=== PATIENT | male | born 1980 | race Caucasian/White ===

== ENCOUNTER 2016-11-27 17:30 | Emergency (ER) | payer MEDICAID ==
[~2016-11-27] VITALS: Ht 177.8 cm; Wt 95.3 kg
[2016-11-27 18:08] VITALS: BP_SYST 144
== END 2016-11-27 21:20 | disposition home or self-care (01) ==
LOC: SED 17:30
DX: M25.862 Other specified joint disorders, left knee (principal)
CPT/HCPCS: 99281

== ENCOUNTER 2017-07-29 21:04 | Emergency (ER) | payer MEDICAID ==
[~2017-07-29] VITALS: Ht 177.8 cm; Wt 99.8 kg
[2017-07-29 21:05] VITALS: BP_SYST 143
--- NOTE | 2017-07-29 22:20 | NUR ---
Patient to ER bed H2 to gown for evaluation. Side rails up. Report given to Halley AVILA.
--- NOTE | 2017-07-29 22:38 | NUR ---
No Pt AAOx4 ambulated into ED c/o 11/22 left thumb pain x3 days. Pain exacerbated upon palpation. +CMS, + swelling. No active bleeding to sight. No other injuries/complaints per pt/noted.
--- NOTE | 2017-07-29 22:40 | NUR ---
ABRAHAM Jacinto at bedside examining patient.
[2017-07-29] MEDS ORDERED: IBUPROFEN 800 MG TABLET PO ONE (22:45)
--- NOTE | 2017-07-29 22:49 | NUR ---
Patient given written and verbal discharge instructions and verbalizes understanding. ER MD Jacinto discussed with patient the results and treatment provided. Patient in stable condition. ID arm band removed. No Rx given. Patient educated on pain management and to follow up with PMD. Pain Scale 0. Opportunity for questions provided and answered. Medication side effect fact sheet provided.
[2017-07-29 22:59] VITALS: BP_SYST 142
== END 2017-07-29 22:49 | disposition home or self-care (01) ==
LOC: SED 21:04
DX: L03.012 Cellulitis of left finger (principal); R03.0 Elevated blood-pressure reading, without diagnosis of hypertension
CPT/HCPCS: 73140-TC; 99284

== ENCOUNTER 2018-03-02 14:32 | Emergency (ER) | payer MEDICAID ==
[~2018-03-02] VITALS: Ht 177.8 cm; Wt 99.8 kg
[2018-03-02 14:40] VITALS: BP_SYST 112
--- NOTE | 2018-03-02 14:43 | NUR ---
Patient triaged and placed in waiting room. VSS and patient appears in no acute distress at this time. Accompanied by SELF, awaiting available bed, and MD notified of need for MSE.
--- NOTE | 2018-03-02 14:51 | NUR ---
Pt placed in bed 5
--- NOTE | 2018-03-02 15:00 | NUR ---
Pt presents to ER for laceration sustained on L index finger current pain level 6/10 on pain scale. Pt reports that he was using utility knife when he accidentally cut finger. Mild bleeding present on laceration. Pt AOX4, ambulatory, no signs of acute distress, pt denies any other complaints.
--- NOTE | 2018-03-02 15:12 | NUR ---
ER at bedside examining patient.
[2018-03-02] MEDS ORDERED: LIDOCAINE 2%, 20 ML MDV INJ ONE (15:30)
[2018-03-02] MEDS ORDERED: DIPH-TET-PERTUS Vaccine 0.5 ML VIAL (ADACEL) I.M. ONE (15:30)
--- NOTE | 2018-03-02 15:50 | NUR ---
Dr. Leon at bedside applying sutures.
[2018-03-02] MEDS ORDERED: BACITRACIN 1 GM OINT TP ONE ×2 (16:15→16:17)
--- NOTE | 2018-03-02 16:30 | NUR ---
Pt medicated as ordered by ER Dr. Leon. Pt tolerated well.
[2018-03-02 17:00] VITALS: BP_SYST 112
--- NOTE | 2018-03-02 17:00 | NUR ---
Patient given written and verbal discharge instructions and verbalizes understanding. ER MD discussed with patient the results and treatment provided. Patient in stable condition. ID arm band removed. Rx of Keflex, [place], Bacitracin given. Patient educated on pain management and to follow up with PMD. Pain Scale 0/10. Opportunity for questions provided and answered. Medication side effect fact sheet provided.
== END 2018-03-02 17:00 | disposition home or self-care (01) ==
LOC: SED 14:32
DX: S61.211A Laceration without foreign body of left index finger without damage to nail, initial encounter (principal); W26.0XXA Contact with knife, initial encounter; Y93.89 Activity, other specified; Y92.89 Other specified places as the place of occurrence of the external cause; Y99.8 Other external cause status
CPT/HCPCS: 12002; 90471; 90715; 99283; J2001

== ENCOUNTER 2018-03-12 13:32 | Emergency (ER) | payer MEDICAID ==
[~2018-03-12] VITALS: Ht 177.8 cm; Wt 99.8 kg
[2018-03-12 13:42] VITALS: BP_SYST 122
[2018-03-12 15:06] VITALS: BP_SYST 131
== END 2018-03-12 15:05 | disposition home or self-care (01) ==
LOC: SED 13:32
DX: S61.411A Laceration without foreign body of right hand, initial encounter (principal); W26.8XXA Contact with other sharp object(s), not elsewhere classified, initial encounter; Y93.89 Activity, other specified; Y92.89 Other specified places as the place of occurrence of the external cause; Y99.8 Other external cause status
CPT/HCPCS: 99283

== ENCOUNTER 2018-03-20 03:46 | Emergency (ER) | payer SELFPAY ==
[~2018-03-20] VITALS: Ht 177.8 cm; Wt 99.8 kg
[2018-03-20 03:58] VITALS: BP_SYST 144
[2018-03-20 04:24] VITALS: BP_SYST 138
== END 2018-03-20 04:24 ==
LOC: SED 03:46
DX: S61.411A Laceration without foreign body of right hand, initial encounter (principal); X58.XXXA Exposure to other specified factors, initial encounter; Y93.89 Activity, other specified; Y92.89 Other specified places as the place of occurrence of the external cause; Y99.8 Other external cause status
CPT/HCPCS: 99283

== ENCOUNTER 2018-11-04 17:03 | Emergency (ER) | payer MEDICAID ==
[~2018-11-04] VITALS: Ht 177.8 cm; Wt 95.3 kg
[2018-11-04 17:08] VITALS: BP_SYST 139
[2018-11-04] MEDS ORDERED: IBUPROFEN 800 MG TABLET PO ONE (17:15)
[2018-11-04 18:23] VITALS: BP_SYST 128
== END 2018-11-04 18:25 | disposition home or self-care (01) ==
LOC: SED 17:03
DX: S46.911A Strain of unspecified muscle, fascia and tendon at shoulder and upper arm level, right arm, initial encounter (principal); X58.XXXA Exposure to other specified factors, initial encounter; Y93.89 Activity, other specified; Y92.89 Other specified places as the place of occurrence of the external cause; Y99.8 Other external cause status
CPT/HCPCS: 73030; 99283

== ENCOUNTER 2018-11-16 17:17 | Emergency (ER) | payer MEDICAID ==
[~2018-11-16] VITALS: Ht 177.8 cm; Wt 95.3 kg
[2018-11-16 17:33] VITALS: BP_SYST 142
[2018-11-16 18:50] VITALS: BP_SYST 132
== END 2018-11-16 18:50 | disposition home or self-care (01) ==
LOC: SED 17:17
DX: S46.911D Strain of unspecified muscle, fascia and tendon at shoulder and upper arm level, right arm, subsequent encounter (principal); R03.0 Elevated blood-pressure reading, without diagnosis of hypertension; X50.0XXD Overexertion from strenuous movement or load, subsequent encounter
CPT/HCPCS: 73030; 99283

== ENCOUNTER 2019-03-08 18:53 | Emergency (ER) | payer MEDICAID ==
[~2019-03-08] VITALS: Ht 180.3 cm; Wt 95.3 kg
[2019-03-08 18:53] VITALS: BP_SYST 136
--- NOTE | 2019-03-08 18:53 | NUR ---
BROUGHT IN BY PRINCE VILLASEÑOR AND PLACED IN HALLWAY, TRIAGED AND REPORT GIVEN TO [employer]URSES
--- NOTE | 2019-03-08 19:20 | NUR ---
Pt KATHERINE PUENTES for medical clearance. Pt C/O pain, swelling and redness to the RT 4th digit. Reports that he may have been bitten by a spider. Pt has full ROM to the RT hand. Denies any discharge, SOB, or any other symptoms at this time. Will continue to monitor.
--- NOTE | 2019-03-08 20:00 | NUR ---
ER Dr. Freedman at bedside examining patient.
[2019-03-08] MEDS ORDERED: DIPHENHYDRAMINE HCL 25 MG CAPSULE PO ONE (20:15)
[2019-03-08] MEDS ORDERED: PREDNISONE 20 MG TABLET PO ONE (20:15)
[2019-03-08] MEDS ORDERED: CEPHALEXIN 500 MG CAPSULE PO ONE (20:15)
[2019-03-08 20:32] VITALS: BP_SYST 136
--- NOTE | 2019-03-08 20:33 | NUR ---
Patient given written and verbal discharge instructions and verbalizes understanding. ER MD discussed with patient the results and treatment provided. Patient in stable condition. ID arm band removed. Rx of Keflex, Prednisone and Benadryl given. Patient educated on pain management and to follow up with PMD. Pain Scale 0. Opportunity for questions provided and answered. Medication side effect fact sheet provided.
== END 2019-03-08 20:03 | disposition home or self-care (01) ==
LOC: SED 18:53
DX: Z02.89 Encounter for other administrative examinations (principal); L03.012 Cellulitis of left finger; F15.90 Other stimulant use, unspecified, uncomplicated; F17.210 Nicotine dependence, cigarettes, uncomplicated
CPT/HCPCS: 99284; J7512; Q0163

== ENCOUNTER 2019-05-31 04:38 | Emergency (ER) | payer MEDICAID ==
[~2019-05-31] VITALS: Ht 177.8 cm; Wt 95.3 kg
[2019-05-31 04:49] VITALS: BP_SYST 141
--- NOTE | 2019-05-31 04:49 | NUR ---
Patient to ER bed 6 to gown for evaluation. Side rails up. Report given to MARGARITA Longo.
--- NOTE | 2019-05-31 05:01 | NUR ---
Pt presents to ER with c/o right hand pain. Pt states he "pushed a board with nails on it" and cut his hand. Pt states right palm pain. Pt states pain is 5/10. Upon assessment, 3 punctures noted to R hand and abrasion noted to L wrist. No bleeding noted. Pt states tetanus up to date. Will continue to monitor.
--- NOTE | 2019-05-31 05:14 | NUR ---
ER Dr. Horta at bedside examining patient.
[2019-05-31] MEDS ORDERED: KETOROLAC TROMETHAMINE 60 MG/2 ML VIAL IM ONE (05:30)
[2019-05-31 05:45] VITALS: BP_SYST 140
--- NOTE | 2019-05-31 05:45 | NUR ---
Patient given written and verbal discharge instructions and verbalizes understanding. ER MD Horta discussed with patient the results and treatment provided. Patient in stable condition. ID arm band removed. IV catheter removed intact and dressing applied, no active bleeding. Rx of motrin given. Patient educated on pain management and to follow up with PMD. Pain Scale 2/10. Opportunity for questions provided and answered. Medication side effect fact sheet provided.
== END 2019-05-31 05:45 | disposition home or self-care (01) ==
LOC: SED 04:38
DX: S61.431A Puncture wound without foreign body of right hand, initial encounter (principal); S61.432A Puncture wound without foreign body of left hand, initial encounter; W45.8XXA Other foreign body or object entering through skin, initial encounter; Y93.89 Activity, other specified; Y92.89 Other specified places as the place of occurrence of the external cause; Y99.8 Other external cause status
CPT/HCPCS: 99282; J1885

== ENCOUNTER 2019-06-03 12:35 | Emergency (ER) | payer MEDICAID ==
[~2019-06-03] VITALS: Ht 177.8 cm; Wt 95.3 kg
--- NOTE | 2019-06-03 13:25 | NUR ---
Patient to ER bed H1 to gown for evaluation. Side rails up.
--- NOTE | 2019-06-03 13:26 | NUR ---
ABRAHAM MCNAIR at bedside examining patient.
--- NOTE | 2019-06-03 13:27 | NUR ---
PT C/O RASH ON HAND AFTER EXPOSURE TO HUMAN WASTE WHILE DOING ROAD SIDE CLEANUP.
[2019-06-03 13:41] VITALS: BP_SYST 123
[2019-06-03 14:00] VITALS: BP_SYST 123
--- NOTE | 2019-06-03 14:00 | NUR ---
Patient given written and verbal discharge instructions and verbalizes understanding. ER MD discussed with patient the results and treatment provided. Patient in stable condition. ID arm band removed. Rx of PREDNISONE,BACTRIM,KEFLEX,MUPIROCIN given. Patient educated on pain management and to follow up with PMD. Pain Scale 0. Opportunity for questions provided and answered. Medication side effect fact sheet provided.
== END 2019-06-03 14:00 | disposition home or self-care (01) ==
LOC: SED 12:35
DX: L50.9 Urticaria, unspecified (principal); L01.00 Impetigo, unspecified; R03.0 Elevated blood-pressure reading, without diagnosis of hypertension; F17.200 Nicotine dependence, unspecified, uncomplicated; Z71.6 Tobacco abuse counseling
CPT/HCPCS: 99283

== ENCOUNTER 2019-12-11 20:39 | Emergency (ER) | payer MEDICAID ==
[~2019-12-11] VITALS: Ht 177.8 cm; Wt 95.3 kg
[2019-12-11 21:14] VITALS: BP_SYST 141
[2019-12-11 21:50] VITALS: BP_SYST 141
== END 2019-12-11 21:50 | disposition home or self-care (01) ==
LOC: SED 20:39
DX: T78.49XA Other allergy, initial encounter (principal); I10 Essential (primary) hypertension; W57.XXXA Bitten or stung by nonvenomous insect and other nonvenomous arthropods, initial encounter
CPT/HCPCS: 99283

== ENCOUNTER 2020-01-23 05:27 | Emergency (ER) | payer SELFPAY ==
[~2020-01-23] VITALS: Ht 177.8 cm; Wt 95.3 kg
--- NOTE | 2020-01-23 05:44 | NUR ---
Patient to ER bed 7 to gown for evaluation. Side rails up.
[2020-01-23 05:45] VITALS: BP_SYST 130
--- NOTE | 2020-01-23 05:45 | NUR ---
ABRAHAM Armenta at bedside examining patient.
--- NOTE | 2020-01-23 05:48 | NUR ---
Pt presents to the ER for bug bite to the R FA x 2 days ago. Pt states bite has increased in swelling, pain and redness. Denies fever, fluid like d/c from bite, n/v/d. Pt reports taking benadryl at approx 2 am.
[2020-01-23 06:50] VITALS: BP_SYST 130
--- NOTE | 2020-01-23 06:50 | NUR ---
Patient given written and verbal discharge instructions and verbalizes understanding. ER MD discussed with patient the results and treatment provided. Patient in stable condition. ID arm band removed. Rx of Benadryl given. Patient educated on pain management and to follow up with PMD. Opportunity for questions provided and answered. Medication side effect fact sheet provided.
== END 2020-01-23 06:50 | disposition home or self-care (01) ==
LOC: SED 05:27
DX: S50.861A Insect bite (nonvenomous) of right forearm, initial encounter (principal); W57.XXXA Bitten or stung by nonvenomous insect and other nonvenomous arthropods, initial encounter; Y93.89 Activity, other specified; Y92.89 Other specified places as the place of occurrence of the external cause; Y99.8 Other external cause status
CPT/HCPCS: 99282

== ENCOUNTER 2020-01-30 20:47 | Emergency (ER) | payer SELFPAY ==
[~2020-01-30] VITALS: Ht 177.8 cm; Wt 95.3 kg
[2020-01-30 20:55] VITALS: BP_SYST 127
--- NOTE | 2020-01-30 21:00 | NUR ---
Patient to ER bed 3 to gown for evaluation. Side rails up. Report given to PAULETTE AVILA.
--- NOTE | 2020-01-30 21:05 | NUR ---
ER at bedside examining patient.
--- NOTE | 2020-01-30 21:10 | NUR ---
Patient presents to the ER c/o bump to L wrist w/ pain rating at 7/10. Pt belives it was bug bite. The bump has increased in size, denies fever, chills and cough. Pt reports hx of meth and nicotine use.
[2020-01-30 22:25] VITALS: BP_SYST 127
--- NOTE | 2020-01-30 22:25 | NUR ---
Patient given written and verbal discharge instructions and verbalizes understanding. ER MD discussed with patient the results and treatment provided. Patient in stable condition. ID arm band removed. Rx of ibuprofen and bactrim given. Patient educated on pain management and to follow up with PMD. Opportunity for questions provided and answered. Medication side effect fact sheet provided.
--- NOTE | 2020-01-30 22:41 | NUR ---
Note undone in EDM - 01/30/20 at 2251 by [email or web address] Patient presents to the ER c/o bump to L wrist w/ pain rating at 7/10. Pt belives it was bug bite. The bump has increased in size, denies fever, chills and cough. Pt reports hx of meth and nicotine use.
== END 2020-01-30 22:25 | disposition home or self-care (01) ==
LOC: SED 20:47
DX: L02.413 Cutaneous abscess of right upper limb (principal); F17.200 Nicotine dependence, unspecified, uncomplicated; F15.90 Other stimulant use, unspecified, uncomplicated
CPT/HCPCS: 87070-TC; 87075-TC; 99284

== ENCOUNTER 2020-08-20 21:20 | Emergency (ER) | payer SELFPAY ==
[~2020-08-20] VITALS: Ht 177.8 cm; Wt 95.3 kg
[2020-08-20 21:20] VITALS: BP_SYST 127
[2020-08-20 23:35] VITALS: BP_SYST 127
== END 2020-08-20 23:35 | disposition home or self-care (01) ==
LOC: SED 21:20
DX: M79.671 Pain in right foot (principal); M79.672 Pain in left foot
CPT/HCPCS: 99282

== ENCOUNTER 2021-07-04 14:20 | Emergency (ER) | payer MEDICAID ==
[~2021-07-04] VITALS: Ht 177.8 cm; Wt 97.5 kg
[2021-07-04 14:30] VITALS: BP_SYST 127
--- NOTE | 2021-07-04 14:30 | NUR ---
Pt triaged and placed in room [address] Hickman informed.
--- NOTE | 2021-07-04 14:40 | NUR ---
PT Jolene/ALVARADO FROM HOME complaint of some pain and swelling and erythema to the right arm X 3 day , he reported he may have been exposed to poison oak. He denies any fevers or chills. Denies any pain or swelling at injection site. denies shortness of breath.ed md seen pt gave order
[2021-07-04] MEDS ORDERED: CLINDAMYCIN HCL 150 MG CAPSULE PO ONE (14:45)
[2021-07-04] MEDS ORDERED: HYDC1% TP (14:48)
[2021-07-04] MEDS ORDERED: CLIN-142 PO (14:48)
[2021-07-04 16:05] VITALS: BP_SYST 127
--- NOTE | 2021-07-04 16:05 | NUR ---
Patient given written and verbal discharge instructions and verbalizes understanding. ER MD discussed with patient the results and treatment provided. Patient in stable condition. ID arm band removed. [facility]CI Rx of given. Patient educated on pain management and to follow up with PMD. Pain Scale . Opportunity for questions provided and answered. Medication side effect fact sheet provided.
== END 2021-07-04 16:05 | disposition home or self-care (01) ==
LOC: SED 14:20
DX: L03.113 Cellulitis of right upper limb (principal); Z79.899 Other long term (current) drug therapy
CPT/HCPCS: 99283

== ENCOUNTER 2022-05-18 23:54 | Emergency (ER) | payer MEDICAID ==
[~2022-05-18] VITALS: Ht 177.8 cm; Wt 95.3 kg
[~2022-05-18 23:54] MED LIST: CLIN-142 PO; HYDC1% TP
[2022-05-19 00:12] VITALS: BP_SYST 131
--- NOTE | 2022-05-19 00:16 | NUR ---
Patient triaged and placed in waiting room. VSS and patient appears in no acute distress at this time. Accompanied by self, awaiting available bed, and MD Morrissey notified of need for MSE.
--- NOTE | 2022-05-19 00:19 | NUR ---
Patient to ER bed 2 to gown for evaluation. Side rails up. Report given to MARGARITA Singh.
[2022-05-19] MEDS ORDERED: DIPHTH,PERTUSS(ACELL),TET VAC 0.5 ML VIAL (Tdap) I.M. ONE (01:00)
[2022-05-19 01:10] VITALS: BP_SYST 131
--- NOTE | 2022-05-19 01:10 | NUR ---
Patient given written and verbal discharge instructions and verbalizes understanding. ER MD discussed with patient the results and treatment provided. Patient in stable condition. ID arm band removed. Opportunity for questions provided and answered.
== END 2022-05-19 01:10 | disposition home or self-care (01) ==
LOC: SED 23:54
DX: S01.511A Laceration without foreign body of lip, initial encounter (principal); Z79.899 Other long term (current) drug therapy; Y04.0XXA Assault by unarmed brawl or fight, initial encounter; Y93.89 Activity, other specified; Y92.89 Other specified places as the place of occurrence of the external cause; Y99.8 Other external cause status
CPT/HCPCS: 90715; 99283

== ENCOUNTER 2023-03-03 09:09 | Emergency (ER) | payer MEDICAID ==
[~2023-03-03] VITALS: Ht 177.8 cm; Wt 84.8 kg
[2023-03-03 09:18] VITALS: BP_SYST 120; PULSE 98; RESP 20; TEMP 97.6; O2SAT 97
[2023-03-03] MEDS ORDERED: LIDOCAINE VISCOUS 2%, 15 ML UDC MM ONE (10:00)
[2023-03-03] MEDS ORDERED: DEXAMETHASONE SOD PHOSPHATE 10 MG/ML VIAL PO ONE (10:00)
[2023-03-03 10:44] LABS: INFLUENZA TYPE A Negative (NEGATIVE); INFLUENZA TYPE B NEGATIVE (NEGATIVE)
[2023-03-03] MEDS ORDERED: IBUP-1969 PO (10:47)
[2023-03-03] MEDS ORDERED: BENZ1LOZ73 PO (10:47)
[2023-03-03 10:54] LABS: STREPTOCOCCUS A SCREEN (RAPID) NEGATIVE (NEGATIVE)
== END 2023-03-03 11:06 | disposition home or self-care (01) ==
LOC: SED 09:09
DX: J02.9 Acute pharyngitis, unspecified (principal); R05.9 Cough, unspecified; R09.81 Nasal congestion; F11.90 Opioid use, unspecified, uncomplicated; Z79.899 Other long term (current) drug therapy; Z20.822 Contact with and (suspected) exposure to COVID-19
CPT/HCPCS: 99283; 87426; 86403; 36415; 87081; 87804 ×2; J2001; J1100

== ENCOUNTER 2023-10-24 20:51 | Emergency (ER) | payer MEDICAID ==
[~2023-10-24] VITALS: Ht 177.8 cm; Wt 90.7 kg
[~2023-10-24 20:51] MED LIST changes: +BENZ1LOZ73 PO; +IBUP-1969 PO
[2023-10-24 21:17] VITALS: BP_SYST 125; PULSE 91; RESP 16; TEMP 97.3; O2SAT 98
[2023-10-24] MEDS ORDERED: CEPH250C PO (21:24)
[2023-10-24] MEDS ORDERED: DOXY100C5 PO (21:24)
[2023-10-24 21:50] VITALS: BP_SYST 125; PULSE 91; RESP 16; TEMP 97.3; O2SAT 98
== END 2023-10-24 22:05 | disposition home or self-care (01) ==
LOC: SED 20:51
DX: L02.212 Cutaneous abscess of back [any part, except buttock and flank] (principal); Z79.899 Other long term (current) drug therapy; Z79.2 Long term (current) use of antibiotics
CPT/HCPCS: 99283

== ENCOUNTER 2023-10-28 13:06 | Emergency (ER) | payer MEDICAID ==
[~2023-10-28] VITALS: Ht 177.8 cm; Wt 90.7 kg
[~2023-10-28 13:06] MED LIST changes: +CEPH250C PO; +DOXY100C5 PO
[2023-10-28 13:22] VITALS: BP_SYST 137; PULSE 77; RESP 17; TEMP 96.9; O2SAT 99
[2023-10-28] MEDS: LIDOCAINE 1% 10 MG/ML, 20 ML MDV ID ONE (13:30)
[2023-10-28 13:45] LABS: BASOPHILS % (AUTO) 0.8 % (0.0-2.0); EOSINOPHILS # (AUTO) 0.3 K/uL (0.0-0.4); EOSINOPHILS % (AUTO) 4.6 % (0.0-4.0); HEMATOCRIT 40.8 % (36-54); HEMOGLOBIN 14.2 g/dL (14.0-18.0); LYMPHOCYTES # (AUTO) 1.5 K/uL (1.0-5.5); LYMPHOCYTES % (AUTO) 25.8 % (20.5-51.5); MEAN CORPUSCULAR HEMOGLOBIN 31 pg (27-31); MEAN CORPUSCULAR HGB CONC 35 % (32-36); MEAN CORPUSCULAR VOLUME 88 fL (79.0-98.0); MONOCYTES # (AUTO) 0.4 K/uL (0.0-1.0); MONOCYTES % (AUTO) 7.1 % (1.7-9.3); NEUTROPHILS # (AUTO) 3.5 K/uL (1.8-7.7); NEUTROPHILS % (AUTO) 61.7 % (40.0-70.0); PLATELET COUNT (AUTO) 234 K/uL (130-430); RED BLOOD CELL COUNT(AUTO) 4.64 MIL/uL (4.2-6.2); RED CELL DISTRIBUTION WIDTH 12.5 % (9.0-15.0); WHITE BLOOD COUNT (AUTO) 5.7 K/uL (4.8-10.8)
[2023-10-28 14:07] LABS: CALCIUM 8.5 mg/dL (8.4-11.0); CREATININE 0.85 mg/dL (0.55-1.30); POTASSIUM 3.9 mmol/L (3.5-5.1)
[2023-10-28] MEDS ORDERED: SULF1TAB47 PO (14:57)
[2023-10-28] MEDS ORDERED: IBUP-1969 PO (14:57)
[2023-10-28] MEDS: cefTRIAXone 1 GM in LIDOCAINE 1%, 20 ML MDV 2.1 ML IM ONE (15:11)
[2023-10-28] MEDS: IBUPROFEN 600 MG TABLET PO ONE (15:13)
== END 2023-10-28 15:20 | disposition home or self-care (01) ==
LOC: SED 13:06
DX: L02.211 Cutaneous abscess of abdominal wall (principal); Z79.899 Other long term (current) drug therapy; Z79.2 Long term (current) use of antibiotics
CPT/HCPCS: 99283; 10060; 80048; 85025; 36415; 96372; 83605; J0696; J2001

== ENCOUNTER 2024-03-04 05:35 | Emergency (ER) | payer MEDICAID ==
[~2024-03-04 05:35] MED LIST changes: +SULF1TAB47 PO
== END 2024-03-04 06:00 | disposition left against medical advice (07) ==
LOC: SED 05:35
DX: S61.219A Laceration without foreign body of unspecified finger without damage to nail, initial encounter (principal); Z53.21 Procedure and treatment not carried out due to patient leaving prior to being seen by health care provider; X58.XXXA Exposure to other specified factors, initial encounter; Y93.89 Activity, other specified; Y92.89 Other specified places as the place of occurrence of the external cause; Y99.8 Other external cause status